=== PATIENT | female | born 1955 | race Caucasian/White ===

== ENCOUNTER 2021-07-12 10:50 | Inpatient (IN) ==
[2021-07-12 13:06] LABS: Urine Appearance Clear; Urine Bilirubin Negative (Negative); Urine Blood 1+ (Negative); Urine Color Amber; Urine Glucose Negative (Negative); Urine Ketones Negative (Negative); Urine Nitrite Negative (Negative); Urine Protein Negative (Negative); Urine Specific Gravity 1.006 (1.002-1.030); Urine Urobilinogen Negative (Negative)
[2021-07-12 13:18] LABS: Hematocrit 38 % (35-47); Mean Corpuscular HGB Conc 34 g/dL (31-36); Mean Corpuscular Hemoglobin 30 pg (27-31); Mean Corpuscular Volume 89 fL (80-97); Mean Platelet Volume 7.8 fL (7.4-10.4); Platelet Count 241 10^3/uL (150-450); Red Blood Count 4.29 10^6 /uL (3.70-4.87); Red Cell Distribution Width 17 % (10-15); White Blood Count 5.8 10^3/uL (3.5-10.8)
[2021-07-12 13:29] LABS: ABS Eosinophils 0.1 10^3/ul (0-0.6); ABS Lymphocytes 0.6 10^3/ul (1.0-4.8); ABS Monocytes 0.2 10^3/ul (0-0.8); Lymphocyte % 10.8 %
[2021-07-12 13:32] LABS: Urine Bacteria 1+ (Absent); Urine Red Blood Cell Trace(0-2/hpf) (Absent); Urine Squamous Epithelial Cell Present (Absent); Urine White Blood Cell Trace(0-5/hpf) (Absent)
[2021-07-12 13:37] LABS: Albumin 3.2 g/dL (3.2-5.2); Albumin/Globulin Ratio 1.2 (1-3); Calcium 8.3 mg/dL (8.6-10.3); Globulin 2.7 g/dL (2-4); Potassium 3.6 mmol/L (3.5-5.0); Total Bilirubin 7.6 mg/dL (0.2-1.0); Total Protein 5.9 g/dL (6.4-8.9); eGFR CKD-EPI 99.8 (>60)
[2021-07-12 14:12] LABS: RBC Morphology Normal (Normal)
[2021-07-12 15:20] LABS: Direct Bilirubin 4.8 mg/dL (0.03-0.18)
[2021-07-12 15:57] LABS: Rapid COVID-19 Molecular Undetected (Undetected)
[2021-07-12] MEDS ORDERED: Ondansetron ODT 4 mg TAB 4 MG TAB SL PRN (17:01)
[2021-07-12] MEDS ORDERED: Piperacillin/Tazobac ADVAN 3.375 GM in NS 0.9% 100 ml BAG 100 ML IV ONE (17:01)
[2021-07-12] MEDS ORDERED: Zosyn per Pharmacy NOTE FOLLOW UP SCH (18:00)
[2021-07-12] MEDS: Enoxaparin 40 MG/0.4 ML SYR SUBCUT SCH (20:14)
[2021-07-12 20:16] LABS: Hepatitis B Surface Antigen Nonreactive (Nonreactive)
[2021-07-12 20:21] LABS: Hepatitis A Ab IgM Negative (Negative)
[2021-07-12 20:22] LABS: Hepatitis B Core IgM Nonreactive (Nonreactive)
[2021-07-12] MEDS ORDERED: Iohexol 300 (CONTRAST) 10 ML SDV IV ONE (20:30)
[2021-07-12 20:34] LABS: Hepatitis C Antibody Negative (Negative)
[2021-07-12] MEDS ORDERED: Gadoteridol (CONTRAST) 279.3 MG/ML 10 ML IV ONE (21:18)
[2021-07-12] MEDS: ZOSYN 3.375 GM Q8H per EXTENDED INFUSION IV SCH ×3 (22:32→23:10)
[2021-07-12] MEDS: NS 0.9% 1000 ml BAG 1,000 ML IV SCH (23:33)
[2021-07-13] MEDS: ZOSYN 3.375 GM Q8H per EXTENDED INFUSION IV SCH ×3 (06:03→22:35)
[2021-07-13 06:51] LABS: Hematocrit 33 % (35-47); Hemoglobin 11.4 g/dL (12.0-16.0); Mean Corpuscular HGB Conc 34 g/dL (31-36); Mean Corpuscular Hemoglobin 31 pg (27-31); Mean Corpuscular Volume 90 fL (80-97); Mean Platelet Volume 7.6 fL (7.4-10.4); Platelet Count 203 10^3/uL (150-450); Red Blood Count 3.68 10^6 /uL (3.70-4.87); Red Cell Distribution Width 18 % (10-15); White Blood Count 4.9 10^3/uL (3.5-10.8)
[2021-07-13 06:58] LABS: Albumin 2.5 g/dL (3.2-5.2); Albumin/Globulin Ratio 1.1 (1-3); Globulin 2.2 g/dL (2-4); Total Bilirubin 6.3 mg/dL (0.2-1.0); Total Protein 4.7 g/dL (6.4-8.9)
[2021-07-13 07:08] LABS: ABS Eosinophils 0.1 10^3/ul (0-0.6); ABS Lymphocytes 1.1 10^3/ul (1.0-4.8); ABS Monocytes 0.2 10^3/ul (0-0.8); ABS Neutrophils 3.4 10^3/ul (1.5-7.7); Eosinophil % 2.5 %; Lymphocyte % 23.2 %; Nucleated Red Blood Cells % 0.1
[2021-07-13] MEDS: Enoxaparin 40 MG/0.4 ML SYR SUBCUT SCH (17:10)
[2021-07-13] MEDS: NS 0.9% 1000 ml BAG 1,000 ML IV SCH (19:19)
[2021-07-14 04:49] LABS: Albumin 2.5 g/dL (3.2-5.2); Albumin/Globulin Ratio 1.2 (1-3); Calcium 7.8 mg/dL (8.6-10.3); Globulin 2.1 g/dL (2-4); Total Protein 4.6 g/dL (6.4-8.9); eGFR CKD-EPI 97.2 (>60)
[2021-07-14 05:03] LABS: Potassium 3.9 mmol/L (3.5-5.0)
[2021-07-14] MEDS: ZOSYN 3.375 GM Q8H per EXTENDED INFUSION IV SCH ×3 (06:12→23:07)
[2021-07-14 15:31] LABS: Albumin/Globulin Ratio 1.3 (1-3); Calcium 8.1 mg/dL (8.6-10.3); Globulin 2.4 g/dL (2-4); Potassium 3.6 mmol/L (3.5-5.0); Total Bilirubin 8.7 mg/dL (0.2-1.0); Total Protein 5.4 g/dL (6.4-8.9); eGFR CKD-EPI 97.9 (>60)
[2021-07-14] MEDS: Enoxaparin 40 MG/0.4 ML SYR SUBCUT SCH (17:05)
[2021-07-14] MEDS: NS 0.9% 1000 ml BAG 1,000 ML IV SCH (19:44)
[2021-07-15] MEDS: ZOSYN 3.375 GM Q8H per EXTENDED INFUSION IV SCH ×3 (05:35→22:46)
[2021-07-15 06:30] LABS: Hematocrit 34 % (35-47); Hemoglobin 11.8 g/dL (12.0-16.0); Mean Corpuscular HGB Conc 35 g/dL (31-36); Mean Corpuscular Hemoglobin 31 pg (27-31); Mean Corpuscular Volume 89 fL (80-97); Mean Platelet Volume 7.7 fL (7.4-10.4); Platelet Count 208 10^3/uL (150-450); Red Blood Count 3.78 10^6 /uL (3.70-4.87); Red Cell Distribution Width 18 % (10-15); White Blood Count 5.1 10^3/uL (3.5-10.8)
[2021-07-15 07:33] LABS: ABS Eosinophils 0.1 10^3/ul (0-0.6); ABS Lymphocytes 0.8 10^3/ul (1.0-4.8); ABS Monocytes 0.2 10^3/ul (0-0.8); Eosinophil % 1.9 %; Lymphocyte % 16.4 %
[2021-07-15] MEDS: methylPREDNISolone 125 mg 2 ML VIAL IV SCH ×2 (12:55→22:05)
[2021-07-15] MEDS: NS 0.9% 1000 ml BAG 1,000 ML IV SCH ×2 (12:58→22:47)
[2021-07-15] MEDS: Enoxaparin 40 MG/0.4 ML SYR SUBCUT SCH (18:03)
[2021-07-16] MEDS: ZOSYN 3.375 GM Q8H per EXTENDED INFUSION IV SCH ×3 (06:05→22:21)
[2021-07-16 06:10] LABS: INR 1.08 (0.86-1.15)
[2021-07-16 06:16] LABS: Albumin 2.6 g/dL (3.2-5.2); Albumin/Globulin Ratio 1.1 (1-3); Calcium 8.1 mg/dL (8.6-10.3); Globulin 2.4 g/dL (2-4); Potassium 4.1 mmol/L (3.5-5.0); Total Bilirubin 8.5 mg/dL (0.2-1.0); eGFR CKD-EPI 100.2 (>60)
[2021-07-16] MEDS: methylPREDNISolone 125 mg 2 ML VIAL IV SCH ×2 (09:39→21:07)
[2021-07-16] MEDS: Enoxaparin 40 MG/0.4 ML SYR SUBCUT SCH (17:54)
[2021-07-17] MEDS: NS 0.9% 1000 ml BAG 1,000 ML IV SCH (03:00)
[2021-07-17 05:05] LABS: Albumin 2.7 g/dL (3.2-5.2); Calcium 8.1 mg/dL (8.6-10.3); Potassium 4.4 mmol/L (3.5-5.0); Total Bilirubin 8.7 mg/dL (0.2-1.0)
[2021-07-17 05:11] LABS: Albumin/Globulin Ratio 1.2 (1-3); Globulin 2.2 g/dL (2-4); Total Protein 4.9 g/dL (6.4-8.9); eGFR CKD-EPI 97.9 (>60)
[2021-07-17] MEDS: ZOSYN 3.375 GM Q8H per EXTENDED INFUSION IV SCH (06:05)
[2021-07-17] MEDS: methylPREDNISolone 125 mg 2 ML VIAL IV SCH (09:20)
[2021-07-17 09:46] LABS: Rapid COVID-19 Molecular Detected (Undetected)
[2021-07-17 11:52] VITALS: BP 128/58
== END 2021-07-17 13:15 | disposition home or self-care (01) ==
LOC: CHOA 10:50 → SSU 17:30
PROVIDERS: ADMIT Internal Medicine Hematology & Oncology; ATTEND Internal Medicine Hematology & Oncology

== ENCOUNTER 2021-08-29 16:12 | Inpatient (IN) ==
[2021-08-29 18:04] LABS: Hematocrit 35 % (35-47); Hemoglobin 11.9 g/dL (12.0-16.0); Mean Corpuscular HGB Conc 34 g/dL (31-36); Mean Corpuscular Hemoglobin 34 pg (27-31); Mean Corpuscular Volume 98 fL (80-97); Mean Platelet Volume 6.8 fL (7.4-10.4); Platelet Count 263 10^3/uL (150-450); Red Blood Count 3.55 10^6 /uL (3.70-4.87); Red Cell Distribution Width 21 % (10-15); White Blood Count 4.9 10^3/uL (3.5-10.8)
[2021-08-29 18:31] LABS: Albumin 3.7 g/dL (3.2-5.2); Albumin/Globulin Ratio 1.6 (1-3); C Reactive Protein 16.73 mg/L (<8.01); Calcium 9.3 mg/dL (8.6-10.3); Globulin 2.3 g/dL (2-4); Potassium 4.2 mmol/L (3.5-5.0); Total Bilirubin 0.8 mg/dL (0.2-1.0); eGFR CKD-EPI 86.1 (>60)
[2021-08-29 19:15] LABS: ABS Lymphocytes 1.2 10^3/ul (1.0-4.8); ABS Monocytes 0.3 10^3/ul (0-0.8); ABS Neutrophils 3.3 10^3/ul (1.5-7.7); Eosinophil % 0.8 %; Lymphocyte % 24.3 %; Nucleated Red Blood Cells % 0.1
[2021-08-29] MEDS ORDERED: Gadoteridol (CONTRAST) 279.3 MG/ML 10 ML IV ONE (19:35)
[2021-08-29] MEDS ORDERED: oxyCODONE/Acetamin 5/325 mg TAB PO ONE (21:23)
[2021-08-29] MEDS ORDERED: Dexamethasone IV 4 MG/ML VIAL 1 ml VIAL IV SLOW PU ONE (22:16)
[2021-08-30] MEDS: oxyCODONE/Acetamin 5/325 mg TAB PO PRN ×3 (03:51→22:39)
[2021-08-30 05:25] LABS: Hematocrit 36 % (35-47); Hemoglobin 12.3 g/dL (12.0-16.0); Mean Corpuscular HGB Conc 34 g/dL (31-36); Mean Corpuscular Hemoglobin 34 pg (27-31); Mean Corpuscular Volume 98 fL (80-97); Platelet Count 248 10^3/uL (150-450); Red Blood Count 3.62 10^6 /uL (3.70-4.87); Red Cell Distribution Width 21 % (10-15); White Blood Count 5.1 10^3/uL (3.5-10.8)
[2021-08-30 05:27] LABS: ABS Lymphocytes 0.6 10^3/ul (1.0-4.8); ABS Monocytes 0.1 10^3/ul (0-0.8); ABS Neutrophils 4.4 10^3/ul (1.5-7.7); Eosinophil % 0.2 %; Lymphocyte % 10.7 %
[2021-08-30 06:05] LABS: Albumin 3.7 g/dL (3.2-5.2); Albumin/Globulin Ratio 1.6 (1-3); Calcium 9.2 mg/dL (8.6-10.3); Globulin 2.3 g/dL (2-4); Magnesium 1.9 mg/dL (1.9-2.7); Total Bilirubin 0.9 mg/dL (0.2-1.0); eGFR CKD-EPI 88.8 (>60)
[2021-08-30 06:11] LABS: Potassium 5.4 mmol/L (3.5-5.0)
[2021-08-30 06:18] LABS: TSH Ultra Thyroid Stim Horm 22.67 mcIU/mL (0.34-5.60)
[2021-08-30 14:23] LABS: Activated Partial Thrombo Time 27.4 seconds (26.0-38.0)
[2021-08-30 14:44] LABS: Albumin 3.9 g/dL (3.2-5.2); Albumin/Globulin Ratio 1.8 (1-3); Calcium 9.5 mg/dL (8.6-10.3); Globulin 2.2 g/dL (2-4); Potassium 4.5 mmol/L (3.5-5.0); Total Protein 6.1 g/dL (6.4-8.9); Uric Acid 3.7 mg/dL (2.3-6.6); eGFR CKD-EPI 97.5 (>60)
[2021-08-31] MEDS ORDERED: Buffered Lidocaine 1% SYRIN 1 ml INTRADERM ONE ×2 (06:00→08:16)
[2021-08-31] MEDS ORDERED: Lactated Ringers 1000 ml BAG 1,000 ML IV SCH (06:00)
[2021-08-31 06:38] LABS: Calcium 9.4 mg/dL (8.6-10.3); eGFR CKD-EPI 96.9 (>60)
[2021-08-31 06:48] LABS: Potassium 5.3 mmol/L (3.5-5.0)
[2021-08-31] MEDS ORDERED: Lidocaine 1% w EPI 1:200,000 SDV 30 ML VIAL ONE (06:54)
[2021-08-31] MEDS ORDERED: Thrombin 5,000 UNITS 1 APPLIC KIT - topical use - TOPICAL ONE (06:54)
[2021-08-31] MEDS ORDERED: Gelfoam 12-7 ADSORBABL SPONGE ONE (06:55)
[2021-08-31] MEDS ORDERED: Gelfoam Sponge SIZE 100 SPONGE ONE (06:55)
[2021-08-31] MEDS ORDERED: Bacitracin OINTMENT TUBE ONE (07:54)
[2021-08-31] MEDS ORDERED: Midazolam 2 mg/2 ml VIAL 1 mg/ml 2 ml VIAL (2 mg) ONE (08:02)
[2021-08-31] MEDS ORDERED: Propofol 10 MG/ML 20 ML BTL ONE (08:02)
[2021-08-31] MEDS ORDERED: Lidocaine 2% PF 5 ML VIAL ONE (08:02)
[2021-08-31] MEDS ORDERED: fentaNYL 250 mcg/5 ml 50 MCG/ML 5 ml VIAL (250 MCG) ONE (08:02)
[2021-08-31 08:15] LABS: Calcium 9.7 mg/dL (8.6-10.3); Phosphorus 3.8 mg/dL (2.5-5.0); Potassium 4.9 mmol/L (3.5-5.0); eGFR CKD-EPI 97.9 (>60)
[2021-08-31] MEDS ORDERED: ceFAZolin 2 GM in NS PREMIX 2 GM/100 ML BAG IVPB ONE (08:16)
[2021-08-31] MEDS ORDERED: Naloxone 0.4 mg VIAL 0.4 mg/ml 1 ml VIAL IV PRN (08:22)
[2021-08-31] MEDS ORDERED: HYDROmorphone 1 MG/1 ML SYRINGE IV PRN (08:22)
[2021-08-31] MEDS ORDERED: Prochlorperazine 5 mg/ml 2 ml VIAL (10 mg) IV PRN (08:22)
[2021-08-31] MEDS ORDERED: Rocuronium 50 mg VIAL 10 mg/ml 5 ml VIAL (50 mg) ONE ×2 (09:02)
[2021-08-31] MEDS ORDERED: EPHEDrine (Pressors) 50 MG/ML VIAL ONE (09:15)
[2021-08-31] MEDS ORDERED: Phenylephrine IV 10 MG/ML 1 ml VIAL ONE (09:47)
[2021-08-31] MEDS ORDERED: Ketamine HCL 50 mg/ml 10 ml VIAL (500 MG) ONE (10:01)
[2021-08-31] MEDS ORDERED: HYDROmorphone 0.5 MG/0.5 ML SYRINGE ONE (11:37)
[2021-08-31] MEDS ORDERED: Ondansetron 4 mg VIAL 2 MG/ML 2 ml VIAL ONE (11:39)
[2021-08-31] MEDS: oxyCODONE/Acetamin 5/325 mg TAB PO PRN (22:00)
[2021-09-01 05:45] LABS: Hematocrit 31 % (35-47); Hemoglobin 10.9 g/dL (12.0-16.0); Mean Corpuscular HGB Conc 35 g/dL (31-36); Mean Corpuscular Hemoglobin 34 pg (27-31); Mean Corpuscular Volume 98 fL (80-97); Mean Platelet Volume 6.9 fL (7.4-10.4); Platelet Count 263 10^3/uL (150-450); Red Blood Count 3.21 10^6 /uL (3.70-4.87); Red Cell Distribution Width 21 % (10-15); White Blood Count 6.6 10^3/uL (3.5-10.8)
[2021-09-01 06:13] LABS: Potassium 5.4 mmol/L (3.5-5.0)
[2021-09-01 08:58] LABS: RBC Morphology Normal (Normal)
[2021-09-01 08:59] LABS: ABS Lymphocytes 0.7 10^3/ul (1.0-4.8); ABS Monocytes 0.5 10^3/ul (0-0.8); ABS Neutrophils 5.4 10^3/ul (1.5-7.7); Lymphocyte % 11.1 %
[2021-09-01 10:06] LABS: Albumin 3.3 g/dL (3.2-5.2); Albumin/Globulin Ratio 1.7 (1-3); Direct Bilirubin 0.2 mg/dL (0.03-0.18); Indirect Bilirubin 0.5 mg/dL (0.3-1.0); Phosphorus 3.6 mg/dL (2.5-5.0); Total Bilirubin 0.7 mg/dL (0.2-1.0); Total Protein 5.3 g/dL (6.4-8.9); Uric Acid 3.9 mg/dL (2.3-6.6)
[2021-09-01] MEDS: oxyCODONE/Acetamin 5/325 mg TAB PO PRN (15:13)
[2021-09-02] MEDS: oxyCODONE/Acetamin 5/325 mg TAB PO PRN ×2 (03:00→15:00)
[2021-09-02 05:54] LABS: Hematocrit 32 % (35-47); Mean Corpuscular HGB Conc 35 g/dL (31-36); Mean Corpuscular Hemoglobin 34 pg (27-31); Mean Corpuscular Volume 99 fL (80-97); Mean Platelet Volume 6.7 fL (7.4-10.4); Platelet Count 233 10^3/uL (150-450); Red Blood Count 3.22 10^6 /uL (3.70-4.87); Red Cell Distribution Width 21 % (10-15); White Blood Count 4.8 10^3/uL (3.5-10.8)
[2021-09-02 05:57] LABS: ABS Lymphocytes 1.1 10^3/ul (1.0-4.8); ABS Monocytes 0.4 10^3/ul (0-0.8); ABS Neutrophils 3.3 10^3/ul (1.5-7.7); Eosinophil % 0.7 %; Lymphocyte % 22.2 %; Nucleated Red Blood Cells % 0.1
[2021-09-02 06:20] LABS: Calcium 8.8 mg/dL (8.6-10.3); Potassium 4.7 mmol/L (3.5-5.0); eGFR CKD-EPI 79.8 (>60)
[2021-09-02] MEDS ORDERED: Iohexol 300 (CONTRAST) 10 ML SDV IV ONE (13:07)
[2021-09-02 15:30] VITALS: BP 123/79
== END 2021-09-02 17:25 | disposition home or self-care (01) | DRG 310 ==
LOC: ED 16:12 → SUATTDRO 08-30 00:43 → EDHOLD 08-30 00:43 → MED 08-30 02:51 → SSU 08-31 13:18
PROVIDERS: ADMIT Hospitalist; ATTEND Internal Medicine